=== PATIENT | female | born 1950 | race Caucasian/White ===

== ENCOUNTER → 2019-12-03 | Outpatient (REF) | payer MEDICARE, OTHER | LOC: M LAB REF 16:16 | PROVIDERS: ATTEND Internal Medicine | DX: R20.2 Paresthesia of skin (principal) ==

== ENCOUNTER → 2021-01-19 | Outpatient (CLI) | payer MEDICARE, OTHER ==
--- NOTE | 2021-01-19 12:21 | DEXAMM ---
INDICATION: [id number] [facility] DISRD OF BONE DENSITY AND STRUCTURE. COMPARISON: 12/19/2016. TECHNIQUE: Bone density was measured using dual-energy x-ray absorptiometry (DEXA). FINDINGS: AP SPINE L1-L4 BMD 1.120 g/cm2 Young Adult T-Score -0.6 Age Matched Z-Score 1.0. LT FEMUR, TOTAL BMD 0.800 g/cm2 Young Adult T-Score -1.6 Age Matched Z-Score -0.2. LT NECK BMD 0.797 g/cm2 Young Adult T-Score -1.7 Age Matched Z-Score -0.1. RT FEMUR, TOTAL BMD 0.829 g/cm2 Young Adult T-Score -1.4 Age Matched Z-Score 0.0. RT NECK BMD 0.803 g/cm2 Young Adult T-Score -1.7 Age Matched Z-Score 0.0. IMPRESSION: There is normal bone density of the spine. There is low bone density of the left hip. There is low bone density of the right hip. The density of the spine has increased 1.2% since the initial exam on 12/19/2016. The density of the left hip has decreased 3.1% since initial exam on 12/19/2016. The density of the right hip has decreased 2.6% since the initial exam on 12/19/2016. FOLLOW-UP: Recommendation for the next bone density exam: 2 years. <Electronically signed by René Ibrahim > 01/19/21 [id number]
== END ==
LOC: M WHC 11:21
PROVIDERS: ATTEND Internal Medicine
DX: M85.88 Other specified disorders of bone density and structure, other site (principal)

== ENCOUNTER → 2021-09-29 | Outpatient (CLI) | payer MEDICARE, OTHER | LOC: M WUC 14:25 | PROVIDERS: ATTEND Internal Medicine | DX: M54.16 Radiculopathy, lumbar region (principal); M51.9 Unspecified thoracic, thoracolumbar and lumbosacral intervertebral disc disorder ==

== ENCOUNTER → 2022-08-06 | Outpatient (CLI) | payer MEDICARE, OTHER | LOC: M WHC 11:02 | PROVIDERS: ATTEND Internal Medicine | DX: Z12.31 Encounter for screening mammogram for malignant neoplasm of breast (principal) ==

== ENCOUNTER → 2023-10-16 | Outpatient (CLI) | payer MEDICARE, OTHER ==
[~2023-10-16] MED LIST: SYNT50TA PO; VALS160T3 PO
[2023-10-16 17:22] LABS: BASO % 0.4 % (0.0-1.0); EOS # 0.1 10^3/uL (0.0-0.5); EOS % 1.3 % (0.0-3.0); HEMATOCRIT 44.1 % (36.0-47.0); HEMOGLOBIN 14.7 g/dl (12.0-15.5); LYMPH # 3.4 10^3/uL (1.5-5.0); LYMPH % 31.6 % (24.0-44.0); MEAN CORPUSCULAR HGB CONC 33.3 g/dl (32.0-36.5); MEAN CORPUSCULAR VOLUME 96.1 fl (80.0-96.0); MONO # 0.7 10^3/uL (0.0-0.8); MONO % 6.8 % (2.0-8.0); NEUTROPHILS # 6.5 10^3/uL (1.5-8.5); NEUTROPHILS % 59.5 % (36.0-66.0); PLATELET COUNT, AUTOMATED 243 10^3/uL (150-450); RED BLOOD COUNT 4.59 10^6/uL (4.00-5.40); WHITE BLOOD COUNT 10.9 10^3/uL (4.0-10.0)
[2023-10-16 17:40] LABS: CPK CREATINE PHOSPHOKINASE 174 U/L (34-145)
[2023-10-16 17:41] LABS: ALBUMIN 3.9 G/DL (3.2-5.2); ALKALINE PHOSPHATASE 99 U/L (46-116); ALT/SGPT 26 U/L (7.0-40); AST/SGOT 18 U/L (<34); BILIRUBIN,TOTAL 0.3 MG/DL (0.3-1.2); BLOOD UREA NITROGEN 23 MG/DL (9-23); CALCIUM LEVEL 9.3 MG/DL (8.3-10.6); CARBON DIOXIDE LEVEL 29 MMOL/L (20-31); CHLORIDE LEVEL 103 MMOL/L (98-107); CK-MB VALUE MASS < 1.0 NG/ML (<3.6); CREATININE FOR GFR 0.92 MG/DL (0.55-1.30); GLOMERULAR FILTRATION RATE > 60.0 (>39); GLUCOSE, FASTING 101 MG/DL (74-106); MB/CK RELATIVE INDEX 0.57 (< OR =4); POTASSIUM SERUM 4.1 MMOL/L (3.5-5.1); SODIUM LEVEL 139 MMOL/L (136-145); TOTAL PROTEIN 7.2 G/DL (5.7-8.2)
== END ==
LOC: M WUC 14:36
PROVIDERS: ATTEND Physician Assistant
DX: R07.9 Chest pain, unspecified (principal)

== ENCOUNTER → 2024-07-23 | Outpatient (CLI) | payer MEDICARE, OTHER | LOC: M WHC 08:29 | PROVIDERS: ATTEND Internal Medicine | DX: Z12.31 Encounter for screening mammogram for malignant neoplasm of breast (principal); M81.0 Age-related osteoporosis without current pathological fracture ==

== ENCOUNTER 2024-11-23 09:52 | Day surgery (SDC) | payer MEDICARE, OTHER ==
[~2024-11-23] VITALS: Ht 162.6 cm; Wt 97.0 kg
[~2024-11-23 09:52] MED LIST changes: +LR 1,000 ML IV SCH; +SERT25TA21 PO
[2024-11-23] MEDS ORDERED: fentaNYL 100 MCG/2 ML INJECTION As Ordered ONE (11:41)
[2024-11-23] MEDS: LIDOCAINE 1% SDV 5ML VIAL As Ordered ONE (11:46)
[2024-11-23] MEDS: CEFUROXIME 1MG/0.1ML INTRACAMERAL INJ As Ordered ONE (11:46)
[2024-11-23 12:05] VITALS: BP 138/71; TEMP 98.1; O2SAT 94
[2024-11-23] MEDS: PHENYLEPHRINE 2.5% OPHTH SOL 2ML OD SCH (12:12)
[2024-11-23] MEDS: TETRACAINE 0.5% OPHTH SOLN 4ML OD SCH (12:12)
[2024-11-23] MEDS: CYCLOPENTOLATE 1% OPHTH SOLN 2ML BTL OD SCH (12:12)
[2024-11-23] MEDS: FLURBIPROFEN 0.03% OPHTH SOLN 2.5 ML OD SCH (12:12)
== END 2024-11-23 12:30 | disposition home or self-care (01) ==
LOC: M SDC 09:52
PROVIDERS: ATTEND Ophthalmology
DX: H25.11 Age-related nuclear cataract, right eye (principal); I10 Essential (primary) hypertension; E03.9 Hypothyroidism, unspecified; Z79.899 Other long term (current) drug therapy; Z79.890 Hormone replacement therapy; Z90.711 Acquired absence of uterus with remaining cervical stump
CPT/HCPCS: 66984; J0697; J3010; V2632

== ENCOUNTER 2025-01-25 08:35 | Day surgery (SDC) | payer MEDICARE, OTHER ==
[~2025-01-25] VITALS: Ht 162.6 cm; Wt 96.3 kg
[~2025-01-25 08:35] MED LIST changes: +CEFUROXIME 1 MG/0.1 ML INTRACAMERAL INJ As Ordered ONE; +LIDOCAINE 1% SDV 5 ML VIAL As Ordered ONE; +MIDAZOLAM INJ 2 MG/2 ML VIAL As Ordered ONE
[2025-01-25] MEDS: CYCLOPENTOLATE 1% OPHTH SOLN 2 ML BTL OS SCH (09:15)
[2025-01-25] MEDS: FLURBIPROFEN 0.03% OPHTH SOLN 2.5 ML OS SCH (09:15)
[2025-01-25] MEDS: TETRACAINE 0.5% OPHTH SOLN 4ML OS SCH (09:15)
[2025-01-25] MEDS: PHENYLEPHRINE 2.5% OPHTH SOL 2ML OS SCH (09:15)
[2025-01-25 11:00] VITALS: BP 155/73; TEMP 97.3; O2SAT 99
== END 2025-01-25 11:15 | disposition home or self-care (01) ==
LOC: M SDC 08:35
PROVIDERS: ATTEND Ophthalmology
DX: H25.12 Age-related nuclear cataract, left eye (principal); Z68.38 Body mass index [BMI] 38.0-38.9, adult; Z79.899 Other long term (current) drug therapy; Z98.41 Cataract extraction status, right eye
CPT/HCPCS: 66984; J0697; J2250; J3010; V2632

== ENCOUNTER → 2025-05-12 | Outpatient (CLI) | payer MEDICARE, OTHER ==
[~2025-05-12] MED LIST changes: -CEFUROXIME 1 MG/0.1 ML INTRACAMERAL INJ As Ordered ONE; -LIDOCAINE 1% SDV 5 ML VIAL As Ordered ONE; -LR 1,000 ML IV SCH; -MIDAZOLAM INJ 2 MG/2 ML VIAL As Ordered ONE
== END ==
LOC: M WHC 11:52
DX: R35.0 Frequency of micturition (principal); N32.89 Other specified disorders of bladder

== ENCOUNTER → 2025-06-16 | Outpatient (CLI) | payer MEDICARE, OTHER ==
[~2025-06-16] MED LIST changes: +ISOVUE-370 76% 100 ML VIAL ONE
== END ==
LOC: M PLAIMG 12:54
PROVIDERS: ATTEND Urology
DX: D41.4 Neoplasm of uncertain behavior of bladder (principal); R35.0 Frequency of micturition
CPT/HCPCS: 74178; Q9967

== ENCOUNTER → 2025-06-21 | Outpatient (REF) | payer MEDICARE, OTHER ==
[~2025-06-21] MED LIST changes: -ISOVUE-370 76% 100 ML VIAL ONE
[2025-06-21 17:45] LABS: APPEARANCE, URINE CLEAR (CLEAR); BACTERIA, URINE AUTO NEGATIVE (NEGATIVE); BILIRUBIN, URINE AUTO NEGATIVE (NEGATIVE); BLOOD, URINE BLOOD NEGATIVE (NEGATIVE); GLUCOSE, URINE (UA) AUTO NEGATIVE (NEGATIVE); KETONE, URINE AUTO NEGATIVE (NEGATIVE); LEUKOCYTE ESTERASE, URINE AUTO TRACE (NEGATIVE); NITRITE, URINE AUTO NEGATIVE (NEGATIVE); PROTEIN, URINE AUTO NEGATIVE (NEGATIVE); RBC, URINE AUTO 0 /HPF (0-3); SPECIFIC GRAVITY URINE AUTO 1.018 (1.002-1.035); SQUAMOUS EPITHELIAL CELL UR AU 2 /HPF (0-6); UROBILINOGEN, URINE AUTO 0.2 mg/dL (0.0-2.0); WBC, URINE AUTO 3 /HPF (0-3)
== END ==
LOC: M LAB REF 16:54
PROVIDERS: ATTEND Internal Medicine
DX: Z01.818 Encounter for other preprocedural examination (principal); Z79.899 Other long term (current) drug therapy